=== PATIENT | female | born 1970 | race Caucasian/White ===

== ENCOUNTER 2017-09-23 16:51 | Emergency (ER) | payer MEDICARE ==
[~2017-09-23] VITALS: Ht 165.1 cm; Wt 98.6 kg
[2017-09-23 16:54] VITALS: Ht 165.1 cm; Wt 98.6 kg
[2017-09-23] MEDS ORDERED: LYRICA150 MG PO (17:00)
[2017-09-23] MEDS ORDERED: DEPAKOTE ER500 MG PO (17:00)
[2017-09-23] MEDS ORDERED: SOMA350 MG PO (17:01)
[2017-09-23] MEDS ORDERED: HYDROCODONE-APA1 TAB PO (17:01)
[2017-09-23] MEDS ORDERED: LEXAPRO20 MG PO (17:01)
[2017-09-23] MEDS ORDERED: THORAZINE25 MG PO (17:02)
[2017-09-23 17:56] LABS: APPEARANCE CLEAR (CLEAR); BILIRUBIN NEGATIVE (NEGATIVE); COLOR YELLOW (YELLOW); GLUCOSE NEGATIVE (NEGATIVE); KETONE NEGATIVE (NEGATIVE); NITRITE NEGATIVE (NEGATIVE); PROTEIN NEGATIVE (NEGATIVE); UROBILINOGEN NORMAL (NORMAL)
[2017-09-23 17:59] LABS: BASOPHILS 0.1 % (0-2); EOSINOPHILS 0.9 % (0-7); HEMOGLOBIN 12.4 g/dL (12-16); IMMATURE GRANULOCYTES 0.6 % (0-5); MCH 33.7 pg (26.0-34.0); MCHC 33.5 g/dL (31.0-37.0); MCV 100.5 fL (80.0-100.0); MEAN PLATELET VOLUME 9.6 fL (7.4-10.4); MONOCYTES 5.3 % (2-11); NEUTROPHILS 68.1 % (40-80); PLATELET COUNT 175 10x3/uL (130-400); RBC 3.68 10x6/uL (4.00-5.40); RDW 15.9 % (11.5-14.5); WBC 7.7 10x3/uL (4.8-10.8)
[2017-09-23 18:20] LABS: ANION GAP 10.6 mmol/L (8-16); CALCIUM 8.8 mg/dL (8.5-10.1); CARBON DIOXIDE 30.1 mmol/L (21.0-32.0); CREATININE - SERUM 0.9 mg/dL (0.6-1.3); POTASSIUM - SERUM 3.7 mmol/L (3.5-5.1); VALPROIC ACID (DEPAKOTE) 12.3 ug/mL (50.0-100.0)
[2017-09-23 21:16] VITALS: BP 137/89
== END 2017-09-23 21:20 | disposition home or self-care (01) ==
LOC: D.ER 16:51
PROVIDERS: Family Medicine
DX: R56.9 Unspecified convulsions (principal); R51 Headache; R42 Dizziness and giddiness; G90.50 Complex regional pain syndrome I, unspecified; J45.909 Unspecified asthma, uncomplicated; F17.200 Nicotine dependence, unspecified, uncomplicated; R22.41 Localized swelling, mass and lump, right lower limb; M79.604 Pain in right leg